=== PATIENT | female | born 1960 | race Caucasian/White ===

== ENCOUNTER → 2018-01-13 | Outpatient (CLI) | payer OTHER ==
[~2018-01-13] MED LIST: ASPEC81 PO; ATV5 PO; BISM262T3 PO; BUPR-79 PO; CLR10 PO; MULTTAB58 PO; PRLSR20 PO; PRM625 PO
--- NOTE | 2018-01-14 07:46 | MAMMOGRAPHY REPORT ---
BILATERAL DIGITAL SCREENING MAMMOGRAM TOMOSYNTHESIS WITH CAD: 01/13/2018 CLINICAL HISTORY: Routine screening. Patient has no complaints. TECHNIQUE: Breast tomosynthesis in addition to standard 2D mammography was performed. Current study was also evaluated with a Computer Aided Detection (CAD) system. COMPARISON: Comparison is made to exams dated: 09/04/2016 mammogram, 07/31/2014 mammogram, 07/18/2013 mammogram, 06/20/2012 mammogram, 04/13/2011 mammogram, and 12/18/2009 mammogram - [facility]. BREAST COMPOSITION: There are scattered areas of fibroglandular density in both breasts. FINDINGS: No suspicious masses, calcifications, or areas of architectural distortion are noted in ei ther breast. There are new expected post surgical changes from bilateral reduction mammoplasty. Mil dly prominent bilateral axillary lymph nodes appear stable compared to prior exams including the 2011 and 2012 exams. IMPRESSION: ACR BI-RADS CATEGORY 2: BENIGN There is no mammographic evidence of malignancy. A 1 year screening mammogram is recommended. The pa tient will receive written notification of the results. Approximately 10% of breast cancers are not detected with mammography. A negative mammographic report should not delay biopsy if a clinically suggestive mass is present. Dora Castorena M.D. ah/:01/13/2018 14:57:56 Construction Director: Deidre SANCHES)(M), [facility] letter sent: Normal 1/2 BI-RADS Code: ACR BI-RADS Category 2: Benign
== END | disposition home or self-care (01) ==
LOC: C.MAMM 13:52
PROVIDERS: ATTEND Family Medicine
DX: Z12.31 Encounter for screening mammogram for malignant neoplasm of breast (principal)

== ENCOUNTER 2024-01-19 10:38 | Observation (INO) ==
--- NOTE | 2024-01-11 08:39 | Anesthesiology Consultation ---
Date of Service January 11, 2024 Assessment & Plan (1) Encounter for pre-operative examination: - Per electrical repairer on 01/04/24: No known infectious disease contacts, current infectious disease symptoms in past 10 days or COVID positive test result in the past 30 days. Chart Review Chart Review: Acceptable Risk for Surgery and Patient NOT seen in Pre Admission Testing History Surgery Operation Date: 01/19/24 12:30 Proposed Procedures p Left Humerus Open Reduction Internal Fixation - Livan Tijerina MD s with Iliac Bone Autograft, Possible Left Sided Iliac Bone Graft - Livan Tijerina MD Height/Weight Height: 5 ft 2 in Weight: 70.307 kg Allergies Allergy/AdvReac Type Severity Reaction Status Date / Time pollen extracts Allergy Intermediate WATERY Verified 01/04/24 10:37 EYES, RUNNY NOSE Medications Home Medications Medication Instructions Recorded Confirmed Last Taken acetaminophen 500 mg tablet 500 mg PO DIRECTED PRN Pain 11/24/18 01/04/24 01/04/19 15:00 (Tylenol Extra Strength) aspirin 81 mg tablet,delayed 81 mg PO QAM 11/24/18 01/04/24 08/14/23 release biotin 1,000 mcg chewable tablet 1,000 mcg PO QAM 11/24/18 01/04/24 08/14/23 conjugated estrogens 0.625 mg 0.625 mg PO DAILY 11/24/18 01/04/24 01/04/19 17:00 tablet lactobacillus combination no.4 3 3,000 mmu cells PO DAILY 11/24/18 01/04/24 08/14/23 billion cell capsule (Probiotic) omeprazole 40 mg capsule,delayed 40 mg PO DAILY PRN 11/24/18 01/04/24 01/01/19 11:00 release HEARTBURN/INDIGESTION bupropion HCl 150 mg 24 hr tablet, 150 mg PO QAM 08/15/23 01/04/24 08/14/23 extended release fluticasone propionate 50 2 spray intranasal DAILY PRN 08/15/23 01/04/24 Unknown mcg/actuation nasal Congestion spray,suspension lisinopril 10 mg tablet 10 mg PO QAM 08/15/23 01/04/24 08/14/23 Past Medical History Medical History Depression with anxiety Fracture of left humerus with nonunion (~08/2023) due to fall GERD (gastroesophageal reflux disease) Herniated disc lumbar History of COVID-19 (~2020) not hospitalized, resolved History of fractured rib (~11/2018) lt due to previous fall History of pneumothorax from fall/fractures Hx of colonic polyp Hx of falling Hx of gastric ulcer Hx of psoriasis Hypertension Past Surgical History Surgical History History of back surgery (~2012) fusion of lumbar region History of cholecystectomy History of melanoma excision History of nasal septoplasty (~11/2018) nasal fx, due to previous fall Hx of appendectomy (~01/2019) Hx of bilateral breast reduction surgery Hx of colonoscopy with polypectomy Hx of esophagogastroduodenoscopy Hx of hysterectomy Social History Smoking Status: Current every day smoker tobacco type: cigarettes Smoking cigarettes per day: "Social" (advised) Do You Dip or Chew Tobacco: No Hx Alcohol Use: Yes alcohol intake frequency: holidays/special occasions only Hx Substance Use: No substance use type: does not use Lab Results Anesthesia Preop Results Results Anesthesia Widget: WBC 6.81 K/ul (4.8-10.8) 01/07/24 Hgb 11.4 g/dl (12.0-16.0) L 01/07/24 Hct 35.6 % (37.0-47.0) L 01/07/24 Plt 351 K/uL (130-400) 01/07/24 Na 137 mmol/L (136-145) 01/07/24 K 3.9 mmol/L (3.5-5.1) 01/07/24 Cl 105 mmol/L (98-107) 01/07/24 CO2 24 mmol/L (21-32) 01/07/24 BUN 18 mg/dl (6-23) 01/07/24 Creat 0.63 mg/dl (0.6-1.2) 01/07/24 Glucose Level 104 mg/dl (70-99(Fasting)) H 01/07/24 Testing Electrocardiogram Date: 01/07/24 NSR, rate 72 bpm Nonspecific T wave abnormality Chest X-Ray Date: 08/15/23 *1view* No acute process. Cervical Spine Date: 08/15/23 No acute findings in the cervical spine.
[~2024-01-19 10:38] MED LIST changes: -ASPEC81 PO; -ATV5 PO; -BISM262T3 PO; -BUPR-79 PO; -CLR10 PO; -MULTTAB58 PO; -PRLSR20 PO; -PRM625 PO; +ROPIVACAINE 0.5% 5 MG/ML 30 ML VIAL ONE
[2024-01-19] MEDS: LR 15ML/HR IV SCH (11:33)
[2024-01-19] MEDS: LR 60ML/HR IV SCH (11:33)
[2024-01-19] MEDS: Scopolamine 1 MG TDSY TD SCH (11:34)
[2024-01-19] MEDS: ACETAMINOPHEN 500 MG TAB PO SCH ×2 (11:34→21:14)
[2024-01-19] MEDS ORDERED: fentaNYL citrate PF 100 MCG/2 ML VIAL ONE ×3 (11:48→14:15)
[2024-01-19] MEDS ORDERED: PROPOFOL IV EMULSION 10 MG/ML 20 ML VIAL IV ONE (11:48)
[2024-01-19] MEDS ORDERED: MIDAZOLAM HCL 1 MG/ML 2ML VIAL ONE (11:48)
[2024-01-19] MEDS ORDERED: LIDOCAINE 2% 2 ML VIAL/AMP(20MG/ML) INFIL ONE (11:49)
--- NOTE | 2024-01-19 12:03 | History & Physical Bridge Note ---
Date of Service January 19, 2024 History & Physical Bridge Note I have examined the patient, reviewed the History & Physical and in the interval since the performance of the History & Physical I have noted the following changes of clinical significance: no changes noted
[2024-01-19] MEDS: ceFAZolin 2000MG 2,000 MG/15 ML SYR IV SCH ×2 (12:38→19:44)
[2024-01-19] MEDS ORDERED: HYDROmorphone INJ 2 MG/ML SYR/VIAL IV PRN (12:39)
[2024-01-19] MEDS ORDERED: PROMETHAZINE HCL 6.25 MG in SODIUM CHLORIDE 0.9% 50 ML IV PRN (12:39)
[2024-01-19] MEDS ORDERED: ONDANSETRON INJ 2 MG/ML 2 ML VIAL IV PRN ×2 (12:39→17:51)
[2024-01-19] MEDS ORDERED: ePHEDrine sulfate 50 MG/ML AMP IV PRN (12:39)
[2024-01-19] MEDS ORDERED: ATROPINE SULFATE 0.1 MG/ML 10ML SYR IV PRN (12:39)
[2024-01-19] MEDS ORDERED: ePHEDrine sulfate 50 MG/5 ML SYR ONE ×2 (13:08)
[2024-01-19] MEDS ORDERED: HYDROmorphone INJ 2 MG/ML SYR/VIAL ONE ×2 (13:47→15:59)
[2024-01-19] MEDS ORDERED: ACETAMINOPHEN 1000 MG/100 ML IV IV ONE (14:18)
[2024-01-19] MEDS: BUPIVACAINE/EPINEPHRINE 0.5% MPF 1:200,000 30 ML VIAL ONE (15:56)
[2024-01-19] MEDS: ceFAZolin 2000MG 2,000 MG/15 ML SYR IV ONE (16:00)
[2024-01-19] MEDS ORDERED: ceFAZolin 330 MG/ML 1 GM VIAL ONE (16:02)
--- NOTE | 2024-01-19 16:29 | Operative Report ---
PG Post Operative Report Pre & Post Diagnosis Operation Date: 01/19/24 12:30 Pre-Op Diagnosis: Left Humeral Fracture Non Union Post-Op Diagnosis: Left Humeral Fracture Non Union I identified the patient and participated in the time-out.: Yes Procedure Operation Date: 01/19/24 12:30 Actual Procedures p Left Humerus Open Reduction Internal Fixation - Livan Tijerina MD Surgeon Livan Tijerina MD Hoister Yohannes Ragsdale PA-C Estimated Blood Loss 100 Findings Consistent with Post-Op Diagnosis Specimens None Anesthesia Type General Complications none Disposition Accompanied Patient To Recovery: No Indications Patient is a 63-year-old female who sustained a work-related injury to her left arm about 5 months ago. She had a fall and had a humeral diaphyseal fracture. She was treated conservatively which seem to be working pretty well initially but then became obvious that she was developing a nonunion. She continued to have persistent pain and gross motion at the fracture site. X-rays show a nonunion. Patient elected to a surgical treatment. Description of Procedure Operative implants consist of: 1. Synthes 10 hole 4.5 narrow LC/DCP locked stainless steel compression plate. 2. 3.5 cortical lag screws x 2. 3. 4.5 fully threaded cortical screws. 4. 6.5 fully threaded cancellous screw x 1. 6. 5.0 mm cortical locking screws. The patient was taken the operating, identified, placed on the operating table in supine position. All contact of appropriate padded. IV antibiotics tried by anesthesia team. A general anesthetic was implemented. A bump was placed un derneath the left hip as well as the left scapula. I elevated the head of the bed just slightly. X-rays brought in to make sure we can get adequate radiographs. Left shoulder and iliac crest area were then prepped and draped in usual sterile fashion. An anterior lateral approach to the humerus was then performed to a a slightly curvilinear incision beginning just lateral to the coracoid extending down towards the deltoid tuberosity and then a anterior laterally on the arm. Sharp dissection was got through subcutaneous tissue down to the deltopectoral interval and the biceps. The deltopectoral interval was developed and I dissected lateral to the biceps. I then dissected through the lateral aspect of the brachialis. We did not expose the radial nerve through this procedure as we stated within the brachialis muscle. We spent quite a bit of time exposing the fracture site. Is abundant callus formed. It was not healed in any fashion and there was a fibrous tissue between the fracture pieces. There there was a lot of fibrous tissue in the bone itself. I spent quite a bit of time debriding this of back to normal bone. We did save some of the bone for later placement of bone graft. I spent quite a bit of time doing this. I then opened up the IM canals with a drill bit. We spent quite a bit of time reducing this to get the optimal reduction. We then hold it was some reduction clamps. I placed 2 a 3.5 cortical lag screws across the fracture site. I then contoured a 10 hole 4.5 narrow plate to the lateral aspect of the humerus. It was fixed proximally with a single 6.5 cancellous screw into the head and then distally with a 4.5 bicortical screw. I then filled the remaining of the holes with a combination of standard screws and locking screws. I did place a 1 interfragmentary screw across the fracture site through the plate. The x-rays brought in. The fracture looks well aligned. All screws were appropriate length. We did take great care to try to protect the radial nerve throughout the procedure. I then irrigated the wound extensively. I then packed the fracture edges with the bone removed from the fracture and there was quite a bit of this so we did not decided to harvest iliac crest bone graft. The deltopectoral fascia and the biceps fascia and brachialis was then repaired with 0 Vicryl suture in [id number] fashion with subcutaneous tissues then closed with 2-0 Vicryl suture in buried interrupted fashion skin was closed skin ally. A sterile dressing with Xeroform, 4 x 4's, OpSite dressing was applied. The patient was then placed in a sling. She was brought out of general anesthesia and transferred to the recovery room in stable condition. Patient tolerated procedure well and there were no complications. Yohannes Ragsdale, physician periodontal assistant, was present for the entire procedure. His assistance was required for proper patient positioning, prepping and draping, I attest to the content of the Intraoperative Record and any orders documented therein. Any exceptions are noted below.
[2024-01-19] MEDS: fentaNYL citrate PF 100 MCG/2 ML VIAL IV PRN (16:43)
--- NOTE | 2024-01-19 17:25 | Anesthesiology Progress Note ---
Date of Service January 19, 2024 Anesthesia Post Procedure Vital Signs Vital Signs: Temp Pulse Pulse Resp BP Pulse Ox O2 Del Method 01/19/24 17:05 76 15 145/72 H 100 Nasal Cannula 01/19/24 16:55 36.0 C L 72 15 126/75 100 Nasal Cannula 01/19/24 16:45 75 12 118/72 100 Nasal Cannula 01/19/24 16:35 77 16 130/68 100 Oxymask 01/19/24 16:25 80 15 108/73 100 Oxymask 01/19/24 16:16 36.0 C L 82 15 123/70 100 Oxymask 01/19/24 11:14 36.5 C 78 18 144/69 H 98 Room Air O2 Flow Rate 01/19/24 17:05 2 01/19/24 16:55 2 01/19/24 16:45 2 01/19/24 16:35 10 01/19/24 16:25 10 01/19/24 16:16 10 01/19/24 11:14 Pain Intensity Left Arm: Pain Intensity: 6 Transfer of Care Handoff Completed per policy Notes Mental Status: alert / awake / arousable Patient Amnestic to Procedure: Yes Nausea / Vomiting: adequately controlled Pain: adequately controlled Airway Patency, RR, SpO2: stable & adequate BP & HR: stable & adequate Hydration State: stable & adequate Anesthetic Complications: no major complications apparent and Pt Satisfied with anesthetic care
[2024-01-19] MEDS ORDERED: NALOXONE HCL 0.4 MG/1 ML VIAL/CARP IV PRN (17:51)
[2024-01-19] MEDS ORDERED: PANTOprazole 40 MG TAB PO PRN (17:51)
[2024-01-19] MEDS ORDERED: bisacodyL 10 MG SUPP PR PRN (17:51)
[2024-01-19] MEDS ORDERED: METOCLOPRAMIDE HCL INJ 5 MG/ML 2 ML VIAL IV PRN (17:51)
[2024-01-19] MEDS ORDERED: diphenhydrAMINE Capsule 25 MG CAP PO PRN (17:51)
[2024-01-19] MEDS ORDERED: FLUTICASONE PROPIONATE NA SPR 16 GM BTL NAE PRN (17:51)
[2024-01-19] MEDS ORDERED: MAGNESIUM HYDROXIDE SUSP 30 ML UDC PO PRN (17:51)
[2024-01-19] MEDS ORDERED: ALUMINUM/MAGNESIUM SUSP 30 ML UDC PO PRN (17:51)
[2024-01-19] MEDS: SODIUM CHLORIDE 0.9% 1,000 ML IV SCH (18:17)
[2024-01-19] MEDS: Scopolamine CHECK PATCH PLACEMENT SCH (18:17)
[2024-01-19] MEDS: ASCORBIC ACID 500 MG TAB PO SCH (18:36)
[2024-01-19] MEDS: SENNA 8.6 MG TAB PO SCH (19:41)
[2024-01-19] MEDS: DOCUSATE SODIUM 100 MG CAP PO SCH (19:41)
--- NOTE | 2024-01-19 19:45 | Fluoroscopy Report ---
FL humerus LT 2V CLINICAL HISTORY: LEFT HUMERUS ORIF COMPARISON STUDY: Left humerus radiographs January 03, 2024. FLUOROSCOPY TIME: 35 seconds. Ka, r: 1.6312 mGy FLUOROSCOPIC IMAGES: 11 FINDINGS: Fluoroscopy was provided during open reduction and internal fixation of the left humeral fr acture with plate and screws. Fracture alignment has markedly improved and is near anatomic. There ar e no unexpected radiopaque foreign bodies. IMPRESSION: Fluoroscopy provided during open reduction and internal fixation of the left humeral fra cture. ACT 112: Negative or not required by law. Electronically signed by: Mitch Francois M.D. 01/19/2024 7:43 PM
--- OUTSIDE RECORDS SUMMARY | 2024-01-19 20:16 | External Medical Summary | Summary of Care ---
Author Name Unknown Organization [facility] Address [address] [facility] [address] Phone [phone] Care Team Providers Care Wool Mixer Name Role Phone Yumiko Huggins MD Primary Care Prov ider Reason for Visit * Reason Onset Date Comments Health Maintenance 01/11/2024 Encounter Details Date Type Department Care Team (Late st Contact Info) Description 01/11/2024 Telephone [facility] Medicine [address] [phone] Yumiko Huggins MD [address] [place] [id number] Health Maintenance Allergies Active Allergy Reactions Criticality Noted Date Comments Pollen 02/17/2019 Runny nose. Watery eyes documented as of this encounter (statuses as of 01/11/2024) Medications Medication Sig Dispensed Refills Start Date End Date Status ECOTRIN LOW STRENGTH 81 MG PO TBEC one by mouth daily 0 Active MULTIVITAMINS PO CAPS one by mouth daily 0 Active Probiotic Product (PROBIOTIC COLON SUPPORT) CAPS Take by mouth. 0 Active Biotin 10 MG TABS Take by mouth. 0 Act smita fluticasone (FLONASE) 50 MCG/ACT nasal sprayIndications:Env ironmental and seasonal allergies Administer 2 Sprays into each nostril in the morning. St 02/16/2019. 1 Inhaler 5 02/17/2019 Active Omeprazole 40 MG Oral Capsule Delayed Release (PriLOSEC)Indication s:Gastroesophageal reflux disease without esophagitis TAKE 1 CAPSULE DAILY NEEDED FOR HEARTBURN 90 Capsule 3 10/28/2022 Active Citalopram Hydrobromide 20 MG Oral Tablet (CeleXA)Indications: Anxiety,Moderate episode of recurrent major depressive disorder (HCC) Take 1 Tablet by mouth in the morning. 90 Tablet 2 07/05/2023 Active buPROPion HCl ER (XL) 150 MG Oral Tablet Extended Release 24 Hour (Wellbutrin XL)Indications:Anxie ty,Moderate episode of recurrent major depressive disorder (HCC) Take 1 Tablet by mouth in the morning. 90 Tablet 2 07/05/2023 Active Estrogens Conjugated 0.625 MG Oral Tablet (Premarin)Indication s:Menopause Take 1 Tablet by mouth in the morning. 90 Tablet 3 08/05/2023 Active Lisinopril 10 MG Oral Tablet (Prinivil)Indication s:HTN, goal below 130/80 TAKE 1 TABLET BY MOUTH EVERY DAY IN THE MORNING 90 Tablet 2 10/16/2023 Active Fluorouracil 5 % External Cream (Efudex)Indications: Actinic keratosis Apply thin layer to entire face (except chin) 2x daily for 3 weeks then send photos through patient portal at end of treatment 40 g 1 11/25/2023 Active documented as of this encounter (statuses as of 01/11/2024) Active Problems Problem Noted Date Diagnosed Date Hx of actinic keratosis 12/23/2023 Overview: Efudex (face 12/25) Hx of nonmelanoma skin cancer 11/29/2023 Overview: basal cell carcinoma (R inferomedial pretibial region 11/27) Moderate episode of recurrent major depressive d isorder 06/01/2023 Obesity, Class I, BMI 30.0-34.9 (see actual BMI) 2022 Hyperglycemia 2022 Primary osteoarthritis of fi rst carpometacarpal joint of left hand 09/02/2022 Chronic back pain greater than 3 months duration 06/12/2022 Prediabetes 10/17/2018 Overview: Per Prediabetes protocol #1 RLS (restless legs syndrome) 12/13/2017 Menopause 05/12/2016 Inflamed seborrheic keratosis 10/30/2013 History of malignant melanoma of skin 10/30/2013 Solar lentigo 10/30/2013 HTN, goal below 130/80 08/22/2010 Organic sleep disorder 08/22/2010 Anxiety 11/07/1998 documented as of this encounter (statuses as of 01/11/2024) Resolved Problems Problem Noted Date Diagnosed Date Resolved Date Malignant melanoma of other part of trunk 11/23/2019 06/12/2022 OBESITY, BMI= 30.82 08/22/10 08/22/2010 03/05/2017 Abnormal weight gain 08/22/2010 017 Backache 08/22/2010 03/05/2017 Vaccination not carried out because of patient refusal 08/22/2010 03/05/2017 ACUTE CYSTITIS 04/20/2006 11/29/2008 Overview: Resolved per Benign Acute Dxs Protocol #3 Urinary frequency 04/20/2006 03/05/2017 ACUTE SINUSITIS NOS 03/29/2006 11/22/19 09 Overview: Resolved per Benign Acute Dxs Protocol #3 Chronic rhinitis 03/29/2006 03/05/2017 ACUTE URI NOS 03/29/2006 11/22/2008 Overview: Resolved per Benign Acute Dxs Protocol #3 DYSFUNCT EUSTACHIAN TUBE 03/29/200611/2016 Tobacco use disorder 03/29/2006 018 BACKACHE NOS 03/29/2006 03/05/2017 ADVANCE DIRECTIVE INFORMATION 07/17/2005 03/05/2017 Overview: No, Advance Directive brochure offered , patient declined. Nausea with vomiting 11/03/2002 017 Hypersomnia 11/07/1998 03/05/2017 MALIG MELANOMA TRUNK, Other disorder of menstruati on and other abnormal bleeding from female genital tract 11/09/2000 documented as of this encounter (statuses as of 01/11/2024) Immunizations Name Administration Dates Next Due Pneumococcal Conjugate Vaccine, 20-valent (Prevn ar20) 06/12/2022 Seasonal Influenza, PF, 6 M & above, IM , (FluLaval or Fluzone) 06/12/2022,09/10/2017 Seasonal Influenza, Split, IIV3, With Preserve, Inj 09/16/2006 TD, Preservative Free 09/10/2017 TDAP (age 11 and older)(Adacel) 06/11/2006 documented as of this encounter Social History Tobacco Use Types Packs/Day Years Used Date Smoking Tobacco: Some Days Cigarettes 0.5 15 Smokeless Tobacco: Never Alcohol Use Standard Drinks/Week Comments Yes 0 (1 standard drink = 0.6 oz pur e alcohol) occasion PHQ-2 Answer Date Recorded PHQ-2 Score 18 09/30/2018 Sex and Gender Information Value Date Recorded Sex Assigned at Female 02/17/2019 3:00 PM EDT Gender Identity Female 02/17/2019 3:00 PM EDT Sexual Orientation Straight 02/17/2019 3: 00 PM EDT Job Start Date Occupation Industry Not on file Not on file Not on file documented as of this encounter Miscellaneous Notes * Telephone Encounter - Holli Romeo LPN - 01/11/2024 3:04 PM EDT Care Gaps Comprehensive Care Outreach Last Office/Telemedicine Visit: 06/01/2023 (in office), Visit date not found (telemedicine) Next Office Visit: Visit date not found Hemoglobin AIC Results: Lab Results Component Value Date/Time HEMOGLOBIN A1C - [facility] 6.2 (H) 06/12/2022 12:15 PM HEMOGLOBIN A1C - [facility] 6.2 (H) 10/11/2018 04:25 PM HEMOGLOBIN A1C - [facility] 6.2 (H) 09/30/2018 08:42 AM HEMOGLOBIN A1C - [facility] 5.9 09/13/2009 01:20 PM BP Readings from Last 1 Encounters: 06/01/23 144/92 Reviewed Health Maintenance below: Health Maintenance Topic Date Due Zoster Vaccines (1 of 2) Never done Depression, Most Recent Score >= 10 (will fire each visit until score < 10) 10/01/2018 COVID-19 Vaccine ( - season) Never done HbA1c 06/12/2023 GFR 06/01/2024 Influenza Vaccine (FLU shot) (Season Ended) 2024 Mammogram 06/21/2024 [facility] Mamm sept Care Gap Outreach Action Taken: Unable to reach rings and disconnects documented in this encounter Plan of Treatment Upcoming Encounters Date Type Department Care Team (Late st Contact Info) Description 02/01/2024 10:40 AM EDT [facility] [place] [address] [facility] [id number] [address] [place] [address] 12/07/2024 7:40 AM EST [facility] [address] [facility] [address] Mir[address] [place] [address] Scheduled Procedures Name Priority Associated Diagnoses Date/Ti me COLONOSCOPY FLEXIBLE PROXIMA L DIAGNOSTIC Recall History of colonic polyps Health Maintenance Due Date Last Done Comments Zoster Vaccines (1 of 2) 2009 Depression, Most Recent Score >= 10 (will fire each visit until score < 10) 10/01/2018 09/30/2018 COVID-19 Vaccine ( season) 2023 HbA1c 06/12/2023 06/12/2022, 05/2019, 09/30/2018, Additional history exists GFR 06/01/2024 06/01/2023, 06/2022, 11/22/2018, Additional history exists Influenza Vaccine (FLU shot) (Season Ended) 2024 06/12/2022, 09/10/2017, 09/16/2006, Additional history exists Mammogram 06/21/2024 06/21/2023, 06/04, 06/16/2022, Additional history exists Albumin/Creatinine Ratio 06/12/2025 06/12/2022 Lipid Panel 06/12/2027 06/12/2022, 09/04, 09/17/2017, Additional history exists DTaP,Tdap,and Td Vaccines (3 - Td or Tdap) 09/10/2027 09/10/2017, 06/11/2006, 10/04/1994, Additional history exists COLONOSCOPY-EVERY 5 YRS AGES 18-100 03/17/2028 03/17/2023, 03/17/2023, 01/04/2019, Additional history exists Pneumococcal Vaccine: Pediatrics (0 to 5 Years) and At-Risk Patients (6 to 64 Years) Completed 06/12/2022, 09/14/2000 COLONOSCOPY-EVERY 3 YRS AGES 18-100 Discontinued 03/17/2023, 03/17/2023, 01/04/2019, Additional history exists GARDASIL-HPV IMMUNIZATION SERIES Aged Out No longer eligible based on patient's age to complete this topic Hepatitis B Aged Out No longer eligi ble based on patient's age to complete this topic MENINGOCOCCAL (MENACTRA/MENVEO) Aged Out No longer eligible based on patient's age to complete this topic documented as of this encounter Medical Devices Not on filedocumented as of this encounter Advance Directives Latest Code Status on File Code Status Date Activated Date Inactivated Comments Full Code 04/07/2017 2:47 PM 04/08/2017 2:44 PM This or nicole reflects the patients wishes and were consensually agreed upon. Care Teams Wool Mixer Relationship Specialty Start Date End Date Yumiko Huggins MD [address] [place] [address] [place] [id number] PCP - General Family Medicine 06/16/22 documented as of this encounter
[2024-01-19] MEDS: oxyCODONE HCL IR 5 MG TAB (IMMEDIATE RELEASE) PO PRN (21:13)
[2024-01-19] MEDS: HYDROmorphone INJ 0.5 MG/0.5 ML SYR IV PRN (23:09)
--- NOTE | 2024-01-20 07:34 | Surgery Progress Note ---
Date of Service January 20, 2024 Assessment & Plan (1) Left humeral fracture: Plan: 63-year-old female postop day 1 ORIF of a left humeral nonunion. She is doing okay this morning. Some pain which is to be expected. She is neurologically intact. Plan: We are going to leave the dressing in place for several days. She cannot start to use her arm for normal activities. She can use it for eating and drinking. No lifting more than 5 pounds. She will follow-up with me in clinic in 2 weeks. Admission and Anticipated Discharge Date Admission Date: January 19, 2024 Subjective Day 1 from ORIF and bone grafting of the humeral nonunion. She is doing pretty well this morning. Pains been controlled. No chest pain. No shortness of br eath Physical Exam Physical Exam: Physical examination is a pleasant middle-aged female I had to wake her this morning. Examination left arm reveals the sling to be in place. Dressings intact. Just a little bit of bloody drainage at the very top. She can flex extend her fingers and wrist appropriately. Her nerves are working normally. Radial nerve is intact. Respiratory: normal respiratory effort, lungs clear to auscultation Cardiovascular: RRR, no murmur, no edema Gastrointestinal (Abdomen): normal bowel sounds, soft, nontender, no hepatosplenomegaly Results & Data Vital Signs (Past 12 Hours) Vital Signs Temp Pulse Pulse Resp BP Pulse Ox O2 Del Method 01/20/24 07:28 36.6 C 79 16 135/74 95 Room Air 01/20/24 03:38 36.7 C 77 18 127/67 93 Room Air 01/19/24 23:24 36.7 C 87 16 136/70 96 Room Air 01/19/24 19:45 36.4 C L 73 14 120/80 100 Nasal Cannula 01/19/24 19:41 Nasal Cannula O2 Flow Rate 01/20/24 07:28 01/20/24 03:38 01/19/24 23:24 01/19/24 19:45 2 01/19/24 19:41 2 PG Care Time/CCT Total # of Minutes Spent Total Time Spent with Patient: Total time spent is greater than 50% in coordination of care (as documented) at patient's floor/unit and/or counseling patient: Coding Level of Care Code 27801 Post Operative Follow-Up Diagnoses Left humeral fracture S42.302K
[2024-01-20] MEDS: MULTIVITAMIN TAB PO SCH (08:14)
[2024-01-20] MEDS: ADVANCED PROBIOTIC 625 MG CAPSULE PO SCH (08:14)
[2024-01-20] MEDS: lisinopril 10 MG TAB PO SCH (08:14)
[2024-01-20] MEDS: buPROPion XL 150 MG TABCR PO SCH (08:15)
[2024-01-20] MEDS: ESTROGENS, CONJUGATED 0.625 MG TAB PO SCH (08:15)
[2024-01-20] MEDS: ASPIRIN 81 MG ECTAB PO SCH (08:15)
[2024-01-20] MEDS ORDERED: NON-FORMULARY MEDICATION (Biotin 1,000 mcg Tablet,Chewable) PO SCH (09:00)
--- OUTSIDE RECORDS SUMMARY | 2024-01-21 04:17 | External Medical Summary | Summary of Care ---
Author Name Unknown Organization [facility] Address [address] [facility] [place] [address] Phone [phone] Care Team Providers Care Quantitative Analyst Developer Name Role Phone Yumiko Huggins MD Primary Care Prov ider Reason for Visit * Reason Onset Date Comments Referral 10/20/2023 Encounter Details Date Type Department Care Team (Late st Contact Info) Description 10/20/2023 Telephone [facility] [address] [id number] Yumiko Huggins MD [address] [place] [id number] Referral Allergies Active Allergy Reactions Criticality Noted Date Comments Pollen 02/17/2019 Runny nose. Watery eyes documented as of this encounter (statuses as of 01/19/2024) Medications Medication Sig Dispensed Refills Start Date [...] THE MORNING 90 Tablet 2 10/16/2023 Active documented as of this encounter (statuses as of 01/19/2024) Active Problems Problem Noted Date Diagnosed Date [...] as of this encounter (statuses as of 01/19/2024) Resolved Problems Problem Noted Date Diagnosed Date [...] as of this encounter (statuses as of 01/19/2024) Immunizations Name Administration Dates Next Due Pneumococcal [...] encounter Miscellaneous Notes * Telephone Encounter - Dayna Cherry OSA - 10/22/2023 10:40 AM EST Called patient, left message that I will send a message in her pt portal offering her an appt or she can call back. * Telephone Encounter - Dayna Cherry OSA - 10/21/2023 3:54 PM EST Patient called back to schedule appointment but call center lost connection. I called patient back and left message for her to return call. Please see if she can go to the [place] office on 11/25/23 at 2:40 pm to see Miri Ma. Otherwise [facility] has Pepper available. * Telephone Encounter - Dayna Cherry OSA - 10/21/2023 11:58 AM EST Called patient, left message to return call to schedule appt. * Telephone Encounter - Jaden Rhoades LPN - 10/20/2023 1:37 PM EST Ref For derm placed on 08/10/23 Last derm apt 06/2022 Needs Derm apt * Telephone Encounter - Deysi Alcocer OSA - 10/20/2023 12:24 PM EST Has the patient been seen for this problem? (Y/N)?: yes If No, an appt needs to be scheduled before a referral will be placed (exception: proceed with referral request if referral request is for a yearly routine appointment with speciality) Patient Name: Nazia Garcia Patient Primary care provider: Yumiko [place] MD Does this need to be an insurance referral (Y/N)?: NA If Yes, does the insurance referral need to be placed into the [employer] system? Name of preferred specialist: NA Type of specialist: Dermatology Location of specialist: [facility] Specialist's Phone #: [phone] Specialist's Fax #: NA Reason for visit: Melanoma Date of visit: NA documented in this encounter Plan of Treatment Upcoming Encounters Date Type Department Care Team (Late st Contact Info) Description 02/01/2024 10:40 AM EDT [address] [id number] Miri Ma PA-C [address] [place] [address] JESS[place] Tir[place] [id number] 12/07/2024 7:40 AM EST [facility] [place] [address] [facility] [id number] [facility]-C [address] [place] [address] JESSICA Tirado [id number] Scheduled Procedures Name Priority Associated Diagnoses Date/Ti [...] and were consensually agreed upon. Care Teams Quantitative Analyst Developer Relationship Specialty Start Date End Date Yumiko Huggins MD [address] [place] [address] JESSICA Tirado [phone] PCP - General Family Medicine 06/16/22 documented as of this encounter
== END 2024-01-20 12:16 | disposition home or self-care (01) ==
LOC: ASU 10:38 → 3N 10:38